=== PATIENT | male | born 1970 | race Caucasian/White ===

== ENCOUNTER 2018-11-22 12:52 | Emergency (ER) | payer OTHER ==
[2018-11-22] MEDS ORDERED: Aspirin 81 mg CHEW TAB* 81 MG TAB.CHEW PO ONE (13:11)
--- NOTE | 2018-11-22 13:14 | UC ---
Cardiac HPI - HPI Summary HPI Summary: 48-year-old male comes in with a chief complaint of chest pain. Last evening he started with midsternal chest pain. No nausea no vomiting no sweating no shortness of breath last night or today. Did have an episode of shortness of breath earlier in the week. He woke up with shortness of breath but then it resolved. This morning chest pain slightly more giving it a 2 out of 10. Denies any abdominal pain. He does not have any history of hypertension and high cholesterol or diabetes. There is a family history of heart attacks and cardiac disease. No upper respiratory tract infection symptoms pain no history of pulmonary embolus or deep venous thrombosis. - History of Current Complaint Stated Complaint: CHEST PAIN Time Seen by Provider: 11/22/18 12:57 PMH/Surg Hx/FS Hx/Imm Hx Previously Healthy: Yes - Family History Known Family History: Positive: Non-Contributory Review of Systems All Other Systems Reviewed And Are Negative: Yes Constitutional: Positive: Negative Skin: Positive: Negative Eyes: Positive: Negative ENT: Positive: Negative Respiratory: Positive: Negative Cardiovascular: Positive: Chest Pain Gastrointestinal: Positive: Negative Motor: Positive: Negative Musculoskeletal: Positive: Negative. Negative: Calf Tenderness Neurological: Positive: Negative Psychological: Positive: Negative Is Patient Immunocompromised?: No Physical Exam Triage Information Reviewed: Yes Appearance: Well-Appearing, No Pain Distress, Well-Nourished Vital Signs Reviewed: Yes Eye Exam: Normal Eyes: Positive: Conjunctiva Clear Neck: Positive: Supple Respiratory: Positive: Lungs clear, Normal breath sounds, No respiratory distress Cardiovascular: Positive: RRR Abdomen Description: Positive: Nontender, Soft Musculoskeletal Exam: Normal Musculoskeletal: Positive: Strength Intact, ROM Intact, No Edema - no calf tenderness Neurological: Positive: Alert, Muscle Tone Normal Psychological Exam: Normal Psychological: Positive: Age Appropriate Behavior Skin Exam: Normal Diagnostics - EKG Cardiac Rate: Bradycardia - at 1255 Cardiac Rhythm: Sinus: Normal - 59bpm Ectopy: None Summary of EKG Findings: ST ELEVATION, PROBABLE NORMAL EARY REPOL PATTERN - Assessment/Plan Course Of Treatment: I discussed the EKG with the patient. There is concave up ST elevation most consistent with early repolarization. I have no prior EKGs to compare. Patient does not appear to be in any acute distress. He was given aspirin 324 mg by mouth here in clinic. I discussed further evaluation and care at the emergency department. Patient declined ambulance transport. - Clinical Impression Provider Diagnosis: Chest pain Discharge - Sign-Out/Discharge Documenting (check all that apply): Patient Departure All imaging exams completed and their final reports reviewed: No Studies - Discharge Plan Condition: Stable Disposition: HOME-RECOMMEND TO ED Referrals: [facility] [place] PHYSICIAN REFERRAL [Outside] Additional Instructions: GO DIRECTLY TO THE EMERGENCY DEPARTMENT FOR FURTHER EVALUATION. - Billing Disposition and Condition Condition: STABLE Disposition: Home-Recommend to ED
[2018-11-22 13:17] VITALS: BP 124/79
== END 2018-11-22 13:20 | disposition home health service (06) ==
LOC: UCEAST 12:52
DX: R07.9 Chest pain, unspecified (principal); Z82.49 Family history of ischemic heart disease and other diseases of the circulatory system
CPT/HCPCS: 93005; 99202; A9270-GY; G0463

== ENCOUNTER 2018-11-22 13:40 | Emergency (ER) | payer OTHER ==
--- NOTE | 2018-11-22 14:11 | ED ---
HPI Chest Pain - HPI Summary HPI Summary: The patient is a 48 y/o M presenting to [facility] with a chief complaint of sudden onset diffuse CP starting last night and persisting into today. He reports that he was at rest lying down and watching TV when the pain started. He then went to sleep and thought that it would go away, but the pain was still present this morning when he woke up. He went to [facility] this morning, and he was give aspirin, but the pressure is still present at 2/10 in severity. He additionally c/o SOB a few days ago that has since resolved; he thought that it was from his seasonal allergies. He denies nausea and palpitations. He has not had this pain before. No hx of HTN, HLD, DM, or PA. FHx of cardiac disease including atrial fibrillation in mother (at late age). Former smoker, daily EtOH , no substance use. - History of Current Complaint Chief Complaint: EDChestPainROMI Time Seen by Provider: 11/22/18 13:51 Hx Obtained From: Patient Onset/Duration: Started Hours Ago - last night, Still Present Timing: Lasting Hours Initial Severity: Moderate Current Severity: Mild Pain Intensity: 2 Pain Scale Used: 0-10 Numeric Chest Pain Location: Diffuse Chest Pain Radiates: No Character: Pressure/Squeezing Aggravating Factor(s): Nothing Alleviating Factor(s): Nothing Associated Signs and Symptoms: Positive: Chest Pain, Shortness of Breath - resolved. Negative: Nausea, Palpitations - Allergy/Home Medications Allergies/Adverse Reactions: Allergies Allergy/AdvReac Type Severity Reaction Status Date / Time No Known Allergies Allergy Verified 11/22/18 13:45 PMH/Surg Hx/FS Hx/Imm Hx Endocrine/Hematology History: Denies: Hx Diabetes Cardiovascular History: Denies: Hx Hypercholesterolemia, Hx Hypertension - Surgical History Surgery Procedure, Year, and Place: nasal fx Infectious Disease History: No Infectious Disease History: Denies: Traveled Outside the [place] in Last 30 Days - Family History Known Family History: Positive: Cardiac Disease - afib in mother - Social History Alcohol Use: Daily Alcohol Amount: 2 drinks/day Substance Use Type: Reports: None Hx Tobacco Use: Yes Smoking Status (MU): Former Smoker Do You Chew or Dip Tobacco: No Have You Chewed or Dipped Tobacco in the LAST YEAR: No Have You Smoked in the Last Year: No Review of Systems Positive: Chest Pain. Negative: Palpitations Positive: Shortness Of Breath - resolved Negative: Nausea All Other Systems Reviewed And Are Negative: Yes Physical Exam - Summary Physical Exam Summary: VITAL SIGNS: Reviewed. GENERAL: Patient is a well-developed and nourished male who is lying comfortable in the stretcher. Patient is not in any acute respiratory distress. HEAD AND FACE: No signs of trauma. No ecchymosis, hematomas or skull depressions. No sinus tenderness. EYES: PERRLA, EOMI x 2, No injected conjunctiva, no nystagmus. EARS: Hearing grossly intact. Ear canals and tympanic membranes are within normal limits. MOUTH: Oropharynx within normal limits. NECK: Supple, trachea is midline, no adenopathy, no JVD, no carotid bruit, no c- spine tenderness, neck with full ROM. CHEST: Symmetric, no tenderness at palpation LUNGS: Clear to auscultation bilaterally. No wheezing or crackles. CVS: Regular rate and rhythm, S1 and S2 present, no murmurs or gallops appreciated. ABDOMEN: Soft, non-tender. No signs of distention. No rebound no guarding, and no masses palpated. Bowel sounds are normal. EXTREMITIES: FROM in all major joints, no edema, no cyanosis or clubbing. NEURO: Alert and oriented x 3. No acute neurological deficits. Speech is normal and follows commands. SKIN: Dry and warm. Triage Information Reviewed: Yes Vital Signs On Initial Exam: Initial Vitals Temp Pulse Resp BP Pulse Ox 97.8 F 59 19 122/80 99 11/22/18 13:42 11/22/18 13:42 11/22/18 13:42 11/22/18 13:42 11/22/18 13:42 Vital Signs Reviewed: Yes Diagnostics - Vital Signs Vital Signs Temp Pulse Resp BP Pulse Ox 11/22/18 13:57 96 11/22/18 13:42 97.8 F 59 19 122/80 99 - Laboratory Result Diagrams: 11/22/18 14:04 11/22/18 14:04 Lab Statement: Any lab studies that have been ordered have been reviewed, and results considered in the medical decision making process. - Radiology CXR Radiology Interpretation Completed By: Radiologist Summary of Radiographic Findings: No active cardiopulmonary disease. ED physician has reviewed this report. - EKG 1355 Cardiac Rate: NL - 52 BPM EKG Rhythm: Sinus Rhythm Summary of EKG Findings: Multiple PVCs. No ST elevations. Re-Evaluation - Re-Evaluation First Eval Re-Evaluation Time: 17:15 Change: Improved Comment: The patient's pain has improved. We discussed discharge home. Chest Pain Course/Dx - Course Assessment/Plan: The patient is a 48 y/o M presenting to [facility] with a chief complaint of sudden onset diffuse CP starting last night and persisting into today. He reports that he was at rest lying down and watching TV when the pain started. He then went to sleep and thought that it would go away, but the pain was still present this morning when he woke up. He went to [facility] this morning, and he was give aspirin, but the pressure is still present at 2/10 in severity. He additionally c/o SOB a few days ago that has since resolved; he thought that it was from his seasonal allergies. He denies nausea and palpitations. He has not had this pain before. No hx of HTN, HLD, DM, or PA. FHx of cardiac disease including atrial fibrillation in mother (at late age). Former smoker, daily EtOH, no substance use. Blood work without any significant abnormality, d-dimer is negative as 200, two troponins 4 hours apart are 0.00. EKG shows a normal sinus rhythm with multiple PVCs but without any ST elevation. Chest x-ray impression: No active cardiopulmonary disease. In the ED course, the patient was given Toradol for the pain. At this point, the patient reports that he is feeling better. Heart to score is equal to 1. Patient reports that all symptoms have resolved. Because the patient has no significant comorbidities and no family history of cardiovascular disease at his age, the patient will be discharged home with follow up with PCP. I discussed all the findings and test results with the patient. Patient was instructed to return to the emergency room immediately if any of the symptoms return or worsens. Patient understands and agrees. Plan of care was discussed with the patient, and patient understands and agrees. All questions were answered at patient satisfaction. There were no further complaints or concerns. PE before discharge : CVS: S1 and S2 present. No murmurs appreciated. Abdominal exam before discharge: Soft, non-tender. No signs of distention. No rebound no guarding, and no masses palpated. Bowel sounds are normal. Patient is alert and oriented x 3. Patient is hemodynamically stable. - Diagnoses Provider Diagnoses: Chest pain Discharge - Sign-Out/Discharge Documenting (check all that apply): Patient Departure - Patient will be discharged home. Patient Received Moderate/Deep Sedation with Procedure: No - Discharge Plan Condition: Stable Disposition: HOME Patient Education Materials: Chest Pain (DC) Referrals: Carlos Greenberg MD [Primary Care Provider] - 3 Days Additional Instructions: Follow up with your primary care provider in 2-3 days. RETURN TO THE EMERGENCY DEPARTMENT FOR ANY NEW OR WORSENING SYMPTOMS. - Billing Disposition and Condition Condition: STABLE Disposition: Home - Attestation Statements Document Initiated by Mily: Yes Documenting Scribe: Amy Bryant Provider For Whom Mily is Documenting (Include Credential): Dr. Amanuel Parker MD Scribe Attestation: Amy Minor scribed for Dr. Amanuel Parker MD on 11/22/18 at 1754. Scribe Documentation Reviewed: Yes Provider Attestation: The documentation as recorded by the Amy elias accurately reflects the service I personally performed and the decisions made by me, Dr. Amanuel Parker MD Status of Scribrichard Document: Ready
[2018-11-22 14:15] LABS: ABS Lymphocytes 1.3 10^3/ul (1.0-4.8); ABS Monocytes 0.5 10^3/ul (0-0.8); Hematocrit 40 % (42-52); Hemoglobin 14.4 g/dL (14.0-18.0); Lymphocyte % 33.6 %; Mean Corpuscular HGB Conc 36 g/dL (31-36); Mean Corpuscular Hemoglobin 31 pg (27-31); Mean Corpuscular Volume 86 fL (80-94); Mean Platelet Volume 8.4 fL (7.4-10.4); Platelet Count 180 10^3/uL (150-450); Red Blood Count 4.69 10^6 /uL (4.18-5.48); Red Cell Distribution Width 13 % (10-15); White Blood Count 3.9 10^3/uL (3.5-10.8)
[2018-11-22 14:22] LABS: INR 1.14 (0.82-1.09)
[2018-11-22 14:31] LABS: Albumin 4.3 g/dL (3.2-5.2); BUN/Creatinine Ratio 13.5 (8-20); Calcium 9.1 mg/dL (8.6-10.3); EGFR African American 100.7 (>60); EGFR Non-African American 83.3 (>60); Globulin 2.2 g/dL (2-4); Potassium 4.1 mmol/L (3.5-5.0); Total Bilirubin 2.1 mg/dL (0.2-1.0); Total Protein 6.5 g/dL (6.4-8.9)
[2018-11-22 14:36] LABS: CKMB ng/mL 0.8 ng/mL (0.6-6.3)
[2018-11-22 15:12] LABS: TSH (Thyroid Stimulating Horm) 1.08 mcIU/mL (0.34-5.60)
[2018-11-22] MEDS ORDERED: Ketorolac INJ* 30 MG/ML 1 ML VIAL IV PUSH ONE (16:33)
[2018-11-22 17:48] VITALS: BP 129/70
== END 2018-11-22 17:47 | disposition home or self-care (01) ==
LOC: ED 13:40
DX: R07.9 Chest pain, unspecified (principal); Z87.891 Personal history of nicotine dependence
CPT/HCPCS: 36415; 71045; 80053; 82550; 82553; 83880; 84443; 84484; 85025; 85379; 85610; 93005; 96374; 99284; J1885